=== PATIENT | male | born 1985 | race Caucasian/White ===

== ENCOUNTER 2018-12-13 22:27 | Emergency (ER) | payer OTHER ==
[2018-12-13 22:37] VITALS: BP 141/89; PULSE 63; RESP 16; TEMP 97.7
--- NOTE | 2018-12-13 23:47 | XR ---
EXAMINATION TYPE: XR cervical spine comp DATE OF EXAM: 12/13/2018 COMPARISON: NONE HISTORY: Neck pain TECHNIQUE: 5 views FINDINGS: Cervical vertebra have normal alignment. Posterior elements are intact. Atlantoaxial facet joint is normal. There are no cervical ribs. IMPRESSION: Negative cervical spine exam.
[2018-12-13] MEDS ORDERED: ACET/COD 300 MG/30 MG STARTER PACK 6 TAB BTL PO STA (23:53)
[2018-12-13] MEDS ORDERED: CYCLOBENZAPRINE 10MG STARTER 3 TAB BTL PO STA (23:53)
[2018-12-14] MEDS ORDERED: ACETAMINOPHEN TAB 325 MG TAB PO STA (00:01)
--- NOTE | 2018-12-14 00:02 | ED ---
General Adult HPI - General Chief complaint: Neck Pain/Injury Stated complaint: Neck/Shoulder Pain Time Seen by Provider: 12/13/18 22:40 Source: patient, RN notes reviewed, old records reviewed Mode of arrival: ambulatory Limitations: no limitations - History of Present Illness Initial comments: 33-year-old male patient with no pertinent past medical history presents to chief complaint of neck pain for approximately 5 days. Patient reports that he woke up and felt stiffness in his neck. Patient reports that she has had pain in the right paracervical region which radiates down to the right shoulder blade as well. Patient denies any recent falls or trauma. Denies any fevers or chills. Denies any other complaints. Patient was stated to the chiropractor which did not improve the symptoms. Systemic: Pt denies fatigue, fever/chills, rash. Pt denies weakness, night sweats, weight loss. Neuro: Pt denies headache, visual disturbances, syncope or pre-syncope. HEENT: Pt denies ocular discharge or irritation, otalgia, rhinorrhea, pharyngitis or notable lymphadenopathy. Cardiopulmonary: Pt denies chest pain, SOB, heart palpitations, dyspnea on exertion. Abdominal/GI: Pt denies abdominal pain, n/v/d. : Pt denies dysuria, burning w/ urination, frequency/urgency. Denies new onset urinary or bowel incontinence. MSK: Pt denies myalgia, loss of strength or function in extremities. Neuro: Pt denies new onset weakness, paresthesias. - Related Data Previous Rx's Medication Instructions Recorded Cyclobenzaprine [Flexeril] 1 - 2 tab PO TID #20 tablet 12/14/18 Allergies Allergy/AdvReac Type Severity Reaction Status Date / Time No Known Allergies Allergy Verified 12/13/18 22:37 Review of Systems ROS Statement: Those systems with pertinent positive or pertinent negative responses have been documented in the HPI. ROS Other: All systems not noted in ROS Statement are negative. Past Medical History Past Medical History: No Reported History History of Any Multi-Drug Resistant Organisms: None Reported Past Surgical History: No Surgical Hx Reported Additional Past Surgical History / Comment(s): Bilateral knee acl replacement Past Psychological History: No Psychological Hx Reported Smoking Status: Never smoker Past Alcohol Use History: None Reported Past Drug Use History: None Reported General Exam - General Exam Comments Initial Comments: Constitutional: NAD, AOX3, Pt has pleasant affect. HEENT: NC/AT, trachea midline, neck supple, no lymphadenopathy. Posterior pharyn x non erythematous, without exudates. External ears appear normal, without discharge. Mucous membranes moist. Eyes PERRLA, EOM intact. There is no scleral icterus. No pallor noted. Cardiopulmonary: RRR, no murmurs, rubs or gallops, no JVD noted. Lungs CTAB in anterior and posterior bah. No peripheral edema. Abdominal exam: Abdomen soft and non-distended. Abdomen non-tender to palpation in all 4 quadrants. Bowel sounds active in LLQ. No hepatosplenomegaly. No ecchymosis Neuro: CN II-XII intact. No nuchal rigidity. No raccon eyes, no harris sign, no hemotympanum. Mild amount of right paracervical spinal tenderness. Kernig's and Brudzinski's negative. MSK: No posterior calf tenderness bilaterally, homans sign negative bilaterally. Posterior tibialis and radial pulse +2 bilaterally. Sensation intact in upper and lower extremities. Full active ROM in upper and lower extremities, 5/5 stregnth. Limitations: no limitations Course Vital Signs 12/13/18 22:35 Temperature 97.7 F Pulse Rate 63 Respiratory 16 Rate Blood Pressure 141/89 O2 Sat by Pulse 99 Oximetry Medical Decision Making - Medical Decision Making 33-year-old male patient with no pertinent past medical history presents to chief complaint of neck pain for approximately 5 days. Patient reports that he woke up and felt stiffness in his neck. Patient reports that she has had pain in the right paracervical region which radiates down to the right shoulder blade as well. Patient denies any recent falls or trauma. Denies any fevers or chills. Denies any other complaints. Patient was stated to the chiropractor which did not improve the symptoms. Pt VSS, afebrile. Physical exam displayed: CN II-XII intact. No nuchal rigidity. No raccon eyes, no harris sign, no hemotympanum. Mild amount of right paracervical spinal tenderness. Kernig's and Brudzinski's negative. Plain film cervical spine densely acute process. Patient's symptoms likely muscular in nature. Patient discharged with muscle relaxers. We'll follow with primary care brothers weren't return to ER if condition worsens. Case discussed with Dr. Coello. Disposition Clinical Impression: Cervical strain Disposition: HOME SELF-CARE Condition: Stable Instructions (If sedation given, give patient instructions): Cervical Strain (ED) Additional Instructions: Patient to adhere to previously discussed treatment plan and will take medication(s) as directed. Patient to follow up with PCP in 1-2 days. Patient to return to ED if symptoms do not improve. Take Medications as needed. Follow-up with primary care provider tomorrow. Return to ER if condition worsens. . Prescriptions: Cyclobenzaprine [Flexeril] 1 - 2 tab PO TID #20 tablet Is patient prescribed a controlled substance at d/c from ED?: No Referrals: Dustin Mason MD [Primary Care Provider] - 1-2 days
== END 2018-12-14 00:09 | disposition home or self-care (01) ==
LOC: EC 22:27
DX: S16.1XXA Strain of muscle, fascia and tendon at neck level, initial encounter (principal); X58.XXXA Exposure to other specified factors, initial encounter
CPT/HCPCS: 72050; 99284

== ENCOUNTER → 2019-02-16 | Outpatient (CLI) | payer OTHER ==
--- NOTE | 2019-02-16 22:42 | MR ---
MRI CERVICAL SPINE: CLINICAL HISTORY: Cervicalgia, radiculopathy, disc degeneration at C5-C6 level, right upper extremity radiculopathy per order. Neck and shoulder pain for 3.5 months with pain or weakness in right arm pe r patient. TECHNIQUE: Multiplanar, multisequence imaging of the cervical spine is performed without IV contrast. COMPARISON: Cervical spine x-ray December 13, 2018. FINDINGS: Sagittal images of the cervical spine show the craniocervical junction to appear within nor mal limits. The cervical and upper thoracic spinal cord is normal in course, caliber, and signal. V ertebral alignment is anatomic. There is mild to moderate disc space narrowing most prominent anterio rly at C5-C6 level. The vertebral body and intravertebral disk heights otherwise are normal. The bon e marrow signal intensity is within normal limits. Axial images at C2-C3 level shows mild left-sided neural foraminal narrowing due to asymmetric uncove rtebral facet degenerative change. Axial images at C3-C4 level shows some uncovertebral facet degenerative changes bilaterally causing m ild right greater than left bilateral neural foraminal narrowing. Axial images at C4-C5 levels right-sided uncovertebral facet degenerative change and left foraminal d isc herniation, there is effacement of the anterolateral thecal sac on the left axial image 32 with m ild to moderate left greater than bilateral neural foraminal narrowing. Axial images at the C5-C6 level show slightly lobulated broad-based right paracentral disc protrusion axial image 25 effacing anterolateral thecal sac and causing fairly moderate right-sided neural fora alma narrowing confirmed on sagittal image 9. Axial images at C6-C7 level show tiny central disc protrusion mildly effacing the anterior thecal sac . Bilateral neural foramina are patent. Axial images at C7-T1 level are within normal limits. IMPRESSION: Multilevel degenerative changes most prominent at C5-C6 level as detailed above.
== END | disposition home or self-care (01) ==
LOC: RADMRIMAIN 18:20
PROVIDERS: ATTEND Physical Medicine & Rehabilitation
DX: M48.02 Spinal stenosis, cervical region (principal); M50.222 Other cervical disc displacement at C5-C6 level; M47.812 Spondylosis without myelopathy or radiculopathy, cervical region
CPT/HCPCS: 72141